=== PATIENT | female | born 1935 | race Hispanic/Latino ===

== ENCOUNTER 2016-10-05 06:08 | Day surgery (SDC) | payer MEDICARE ==
[2016-09-20 12:07] VITALS: BMI 21.9
[2016-10-05] MEDS ORDERED: Lidocaine 1%/Epinephrine 1:100000 30 ml vial ONE ×2 (07:48→08:33)
[2016-10-05] MEDS ORDERED: Bacitracin 500 Units/gm Oint Foilpak UD ONE (07:48)
[2016-10-05] MEDS ORDERED: Propofol 10 mg/ml Inj (20 ML) ONE (08:05)
[2016-10-05] MEDS ORDERED: Albuterol HFA 90 mcg/actuation (8 g) ONE (08:06)
[2016-10-05] MEDS ORDERED: Lidocaine 1% Inj (20ml) ONE (08:06)
[2016-10-05] MEDS ORDERED: Sodium Chloride 0.9% 1,000 ML IV SCH (08:15)
[2016-10-05] MEDS ORDERED: Sodium Bicarbonate (8.4%) 50 mEq Vial ONE (08:32)
[2016-10-05] MEDS ORDERED: Liquid Adhesive TOP ONE (09:39)
[2016-10-05 11:06] VITALS: RESP 19; TEMP 98.2
[2016-10-05 11:35] VITALS: BP 132/70; PULSE 69; O2SAT 95
--- NOTE | 2016-10-06 07:50 | OP ---
PROCEDURE DATE: 10/05/2016 PREOPERATIVE DIAGNOSIS: Consistent lymphadenopathy of levels 1, 2 and 3 of the neck. POSTOPERATIVE DIAGNOSIS: Consistent lymphadenopathy of levels 1, 2 and 3 of the neck. OPERATION PERFORMED: Central neck lymph node excisional biopsy under anesthesia. SURGEON: Teto Mera DO AIR CONDITIONING UNIT TESTER: Dr. Geronimo Cruz ANESTHESIA: Local anesthesia with patient with nasal cannula. ESTIMATED BLOOD LOSS: Minimal. SPECIMEN: Central neck lymph node. COMPLICATIONS: None. DESCRIPTION OF PROCEDURE: Informed consent was obtained prior. The patient was brought to the opera ting suite, placed supine on the operating table. A timeout was called verifying the patient's name, allergies, date of and procedure. Once the information was verified, the patient had nasal ca nnula place and remained supine on the operating table. Approximately 8 mL of 1% of lidocaine with 1 :100,000 epinephrine was injected subcutaneously into the right neck just superficial to the lymph no de to be biopsied in the central neck cephalad to the hyoid bone. The patient was then prepped and d raped in routine fashion with Betadine. The patient remained with nasal cannula in place. Next, after patient was draped and prepped appropriately and the area was marked using a marking pen, a #15 blade was then used to incise the skin for an approximately 3 cm horizontal incision through t he skin and subcutaneous tissues. The area was dissected down to the platysmal muscle. The platysma l muscle was carefully . The lymph node was immediately identified. Careful dissection herber und the lymph node/neck mass was performed using a blunt hemostat. Subsequent attention was then pa id around the capsule. The mass was excised from the area deep to the platysma and the right central neck area dissection and Bovie cautery. The mass was then sent for pathology in formalin and also sent for flow cytometry. The wound was examined. Hemostasis was adequate. Next, the wound was then closed in layered fashion. The platysma area was reapproximated using 4-0 V icryl. Next, 6-0 Prolene was then used in a running interlocking fashion to complete the skin closur e after which Mastisol and Steri-Strips were applied to the patient's neck as well as a bandage. The procedure was then terminated. The patient was then sent to the PACU in stable condition with a [facility] appointment to see Dr. Teto Mera within 1 week. The patient given instructions in PACU. The patient tolerated the procedure well with no complications. Teto Mera DO cc: [id number] TT: 10/06/2016 07:49:29 nn
== END 2016-10-05 12:30 | disposition home or self-care (01) ==
LOC: SDS 06:08
PROVIDERS: ATTEND Otolaryngology
DX: C88.4 Extranodal marginal zone B-cell lymphoma of mucosa-associated lymphoid tissue [MALT-lymphoma] (principal); I10 Essential (primary) hypertension; E78.5 Hyperlipidemia, unspecified; I49.9 Cardiac arrhythmia, unspecified
CPT/HCPCS: 38510; 88305; J2405; J2704; J3010; J7040; J7120

== ENCOUNTER 2016-10-26 11:58 | Day surgery (SDC) | payer MEDICARE ==
[2015-02-11 16:55] VITALS: BMI 22.4
[2016-10-26 12:21] LABS: HEMATOCRIT 31.5 % (36.0-48.0); MEAN CELL VOLUME 87.7 fL (80.0-105.0); MEAN PLATELET VOLUME 8.9 fl (7.0-11.0); RED CELL DISTRIBUTION WIDTH 15.8 % (11.5-14.5); WHITE BLOOD COUNT 4.7 10^3/ul (4.5-11.0)
[2016-10-26 12:29] LABS: CALCIUM 10.1 mg/dL (8.4-10.5); POTASSIUM 4.1 mmol/L (3.6-5.0)
[2016-10-26 12:32] LABS: INR 1.02 (0.93-1.08); PARTIAL THROMBOPLASTIN TIME 23.8 Seconds (23.7-30.8)
[2016-10-26 13:07] VITALS: RESP 20; O2SAT 95
--- NOTE | 2016-10-26 13:13 | CP.SDSHP ---
Same Day Surgery H & P - History Proposed Procedure: Ultrasound guided thoracentesis Pre-Op Diagnosis: Lymphoma - Previous Medical/Surgical History Cardiac: Hypertension, Arrhythmia Pulmonary: Other (Shortness of breath for about a month) Misc: Other (High cholesterol,fatgue,poor appetite) Pain: 0. No Pain Comments: CXray shows a large R pleural effusion. Previous Surgical History: Appendectomy. Hysterectomy. R lumpectomy followed by 6 weeks of radiation treatment. 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
[2016-10-26] MEDS ORDERED: Oxycodone/Acetaminophen 5/325 mg Tab PO PRN (15:58)
[2016-10-26 16:52] VITALS: BP 122/57; PULSE 80; TEMP 98.6
--- NOTE | 2016-10-26 17:13 | US ---
PROCEDURE: Ultrasound guided right thoracentesis. CLINICAL HISTORY: Cervical lymphoma. Large right pleural effusion. Shortness of breath PHYSICIAN(S): Antolin Noble MD. TECHNIQUE: The relative risks and indications of the procedure were explained to the patient and her daughter and consent obtained. The patient was placed in a sitting position on the stretcher and sonography of the right chest performed. This revealed a moderate to large rightpleural effusion. A right posterolateral intercostal approach was selected and the area prepped and draped usual sterile fashion. 1% Xylocaine was used to anesthetize the skin and soft tissues. A 7 Guinean thoracentesis catheter was trocared into the right pleural cavity and 1700of geller fluid aspirated. A cytology specimen was sent. IMPRESSION: 1. Ultrasound guided right thoracentesis. 1700 cc of geller fluid were aspirated.
--- NOTE | 2016-10-27 09:18 | RAD ---
HISTORY: rt thoracentesis COMPARISON: 08/29/2016 TECHNIQUE: Chest PA and lateral FINDINGS: LUNGS: No active pulmonary disease. PLEURA: There is a decrease in the size of the right pleural effusion post thoracentesis. There is no pneumothorax CARDIOVASCULAR: Normal. OSSEOUS STRUCTURES: No significant abnormalities. VISUALIZED UPPER ABDOMEN: Normal. OTHER FINDINGS: None. IMPRESSION: There is a decrease in the size of the right pleural effusion post thoracentesis. There is no pneumothorax
== END 2016-10-26 17:28 | disposition home or self-care (01) ==
LOC: OPSURG 11:58
PROVIDERS: ATTEND Radiology Vascular & Interventional Radiology
DX: J90 Pleural effusion, not elsewhere classified (principal); C85.91 Non-Hodgkin lymphoma, unspecified, lymph nodes of head, face, and neck; R06.02 Shortness of breath; I10 Essential (primary) hypertension; Z88.0 Allergy status to penicillin

== ENCOUNTER 2016-11-25 08:59 | Day surgery (SDC) | payer MEDICARE ==
[2015-02-11 16:55] VITALS: BMI 22.4
[2016-11-25 09:21] LABS: ADD MANUAL DIFF? NO
[2016-11-25 09:30] LABS: BASO # 0.05 K/mm3 (0.0-2.0); EOS # 0.1 (0.0-0.7); EOS % 1.7 % (1.5-5.0); GRAN # 3.75 (1.4-6.5); GRAN % 72.2 % (50.0-68.0); HEMATOCRIT 32.3 % (36.0-48.0); LYMPH # 0.7 (1.2-3.4); LYMPH % 13.3 % (22.0-35.0); MEAN CELL VOLUME 88.7 fL (80.0-105.0); MEAN CORPUSCULAR HEMOGLOBIN 28.3 pg (25.0-35.0); MEAN CORPUSCULAR HGB CONC 31.9 g/dl (31.0-37.0); MEAN PLATELET VOLUME 9.9 fl (7.0-11.0); MONO # 0.6 (0.1-0.6); MONO % 11.8 % (1.0-6.0); PLATELET COUNT 124 10^3/uL (120.0-450.0); WHITE BLOOD COUNT 5.2 10^3/ul (4.5-11.0)
[2016-11-25 09:34] LABS: CALCIUM 9.7 mg/dL (8.4-10.5)
[2016-11-25 09:42] LABS: INR 1.03 (0.93-1.08)
[2016-11-25 09:47] VITALS: RESP 18; O2SAT 94
--- NOTE | 2016-11-25 10:46 | CP.SDSHP ---
Same Day Surgery H & P - History Proposed Procedure: thoracentesis. Pre-Op Diagnosis: recurrent pleural effusion./lymphoma. - Previous Medical/Surgical History Cardiac: Hypertension, Arrhythmia Pulmonary: Asthma Previous Surgical History: HYSTRECTOMY , rt breast lumpectomy. - Allergies Allergies: Allergies Penicillins Allergy (Severe, Verified 09/20/16 12:07) RASH - Physical Exam General Appearance: WNL. Vital Signs: Vital Signs 11/25/16 09:39 Temperature 99.1 F Pulse Rate 83 Respiratory 18 Rate Blood Pressure 150/57 L O2 Sat by Pulse 94 L Oximetry Mental Status: Alert & Oriented x3 Neuro: WNL Heart: WNL Lungs: Other (DECREASED BREATH SOUND RT CHST AREA.) GI: WNL - Impression Impression: recurrent pleural effusion / lymphoma. 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
[2016-11-25] MEDS ORDERED: Oxycodone/Acetaminophen 5/325 mg Tab PO PRN (11:36)
[2016-11-25 12:23] VITALS: BP 113/51; PULSE 74; TEMP 98.9
--- NOTE | 2016-11-25 16:06 | US ---
PROCEDURE: Ultrasound guided right thoracentesis. CLINICAL HISTORY: Lymphoma. Recurrent large right pleural effusion with shortness of breath. Needs repeat thoracentesis. PHYSICIAN(S): Antolin Noble MD. TECHNIQUE: The relative risks and indications of the procedure were explained to the patient and her daughter and consent obtained. The patient was placed in a sitting position on the stretcher and sonography of the right chest performed. This revealed a large rightpleural effusion. A right posterolateral intercostal approach was selected and the area prepped and draped usual sterile fashion. 1% Xylocaine was used to anesthetize the skin and soft tissues. A 7 Bengali thoracentesis catheter was trocared into the right pleural cavity and 2000ccof dionne fluid aspirated. No labs were sent. IMPRESSION: 1. Ultrasound guided right thoracentesis. 2000cc of amberfluid were aspirated.
== END 2016-11-25 13:00 | disposition home or self-care (01) ==
LOC: OPSURG 08:59
PROVIDERS: ATTEND Radiology Vascular & Interventional Radiology
DX: J90 Pleural effusion, not elsewhere classified (principal); C85.90 Non-Hodgkin lymphoma, unspecified, unspecified site; I10 Essential (primary) hypertension; J45.909 Unspecified asthma, uncomplicated; Z88.0 Allergy status to penicillin
CPT/HCPCS: 32555; 36415; 80048; 85025; 85610; 85730; J2405

== ENCOUNTER 2017-03-23 12:11 | Emergency (ER) | payer MEDICARE ==
[2017-03-23 12:12] VITALS: BMI 24.2
--- NOTE | 2017-03-23 12:39 | ED PDOC ---
Arrival/HPI - General Time Seen by Provider: 03/23/17 12:24 Historian: Patient, Family - History of Present Illness Narrative History of Present Illness (Text): 03/23/17 12:30 An 82 year old female, whose past medical history includes hypertension, non- hodgkin lymphoma, fluid in lungs, lumpectomy right breast, and lymph node removal to neck, is accompanied by family member and presents to the emergency department complaining of shortness of breath since last night. Patient's family member reports patient had Chest X-Ray done on 03/21/2017, with results showing left side was clear and right side showed a pleural effusion. Patient also notes experiencing right foot swelling and noticed it since last night. Patient denies of any fever, chills, nausea, vomiting, abdominal pain, chest pain, cough, or any other complaints. PMD: Dr. Medina Time/Duration: Other (last night) Symptom Onset: Sudden Symptom Course: Unchanged Past Medical History - Provider Review Nursing Documentation Reviewed: Yes - Cardiac Hx Hypertension: Yes - Pulmonary Hx Respiratory Disorders: No Other/Comment: hx- fluid in lungs - Neurological Hx Neurological Disorder: No - HEENT Hx HEENT Disorder: No - Renal Hx Renal Disorder: No - Endocrine/Metabolic Hx Endocrine Disorders: No - Hematological/Oncological Hx Blood Transfusions: No Other/Comment: non-hodgkin lymphoma - Integumentary Hx Dermatological Disorder: No - Musculoskeletal/Rheumatological Hx Musculoskeletal Disorders: No - Gastrointestinal Hx Gastrointestinal Disorders: No - Genitourinary/Gynecological Hx Genitourinary Disorders: No - Psychiatric Hx Psychophysiologic Disorder: No Hx Substance Use: No - Surgical History Hx Appendectomy: Yes Other/Comment: lumpectomy right breast, removal lymph node to neck - Anesthesia Hx Anesthesia Reactions: No Hx Malignant Hyperthermia: No Family/Social History - Physician Review Nursing Documentation Reviewed: Yes Family/Social History: No Known Family HX Smoking Status: Never Smoked Hx Alcohol Use: No Hx Substance Use: No Allergies/Home Meds Allergies/Adverse Reactions: Allergies Penicillins Allergy (Verified 03/02/17 11:20) shaking Home Medications: Home Meds Medication Instructions Recorded Confirmed Ascorbic Acid [Vitamin C 500 mg 500 mg PO DAILY 03/02/17 03/23/17 Tab] Aspirin [Adult Low Dose Aspirin EC] 81 mg PO DAILY 03/02/17 03/23/17 Fluticasone/Vilanterol [Breo 1 inh INH DAILY 03/02/17 03/23/17 Ellipta 100-25 Mcg INH] Metoprolol Tartrate [Lopressor] 100 mg PO DAILY 03/02/17 03/23/17 [place]-3 Fatty Acids/Fish Oil [Fish 1 cap PO DAILY 03/02/17 03/23/17 Oil 1,000 mg Capsule] Rosuvastatin Calcium [Crestor] 5 mg PO DAILY 03/02/17 03/23/17 Zolpidem [Ambien] 5 mg PO HS 03/02/17 03/23/17 Review of Systems - Physician Review All systems were reviewed & negative as marked: Yes - Review of Systems Constitutional: absent: Fevers, Night Sweats Respiratory: SOB. absent: Cough Cardiovascular: absent: Chest Pain Gastrointestinal: absent: Abdominal Pain, Nausea, Vomiting Musculoskeletal: Other (right foot swelling) Physical Exam Vital Signs Reviewed: Yes Vital Signs Temp Pulse Resp BP Pulse Ox 03/23/17 12:20 99.0 F 71 20 124/59 L 96 03/23/17 12:12 99 F 81 20 155/60 H 95 Temperature: Afebrile Blood Pressure: Normal Pulse: Regular Respiratory Rate: Normal Appearance: Positive for: Well-Appearing Pain Distress: None Mental Status: Positive for: Alert and Oriented X 3 - Systems Exam Head: Present: Atraumatic, Normocephalic Pupils: Present: PERRL Extroacular Muscles: Present: EOMI Conjunctiva: Present: Normal Mouth: Present: Moist Mucous Membranes Neck: Present: Normal Range of Motion Respiratory/Chest: Present: Decreased Breath Sounds (right side) Cardiovascular: Present: Regular Rate and Rhythm, Normal S1, S2. No: Murmurs Abdomen: Present: Normal Bowel Sounds. No: Tenderness, Distention, Peritoneal Signs Back: Present: Normal Inspection Upper Extremity: Present: Normal Inspection. No: Cyanosis, Edema Lower Extremity: Present: NORMAL PULSES (right foot ), Normal ROM (full ROM to right foot), Swelling (mild swelling to right foot ). No: CALF TENDERNESS, Tenderness (no tenderness to right foot) Neurological: Present: GCS=15, CN II-XII Intact, Speech Normal Skin: Present: Warm, Dry, Normal Color. No: Rashes Psychiatric: Present: Alert, Oriented x 3, Normal Insight, Normal Concentration Medical Decision Making ED Course and Treatment: 03/23/17 12:35 Impression: 82 year old female with shortness of breath right foot swelling. Physical exam shows decreased breath sounds to right side; mild swelling, no tenderness, normal pulses, and full ROM to right foot, no calf tenderness. Differential Diagnosis included but are not limited to: Pleural Effusion vs. Pneumonia vs. DVT Plan: -- EKG -- Chest X-ray -- Labs -- Blood Culture -- Reassess and disposition Prior Visits: Notes and results from previous visits were reviewed. Patient was last seen here in the emergency department 02/11/2017 for chest pain. Progress Notes: 03/23/17 13:17 CXR shows right pleural effusion. Case was discussed with Dr. Ortiz who is covering for Dr. Shirley. She agreed to telemetry admission. I placed a consult for Dr. Noble who drained her lungs last time she was here. - Lab Interpretations Lab Results: 03/23/17 12:45 Lab Results 03/23/17 12:45: WBC 3.3 L, RBC 3.97, Hgb 11.7 L, Hct 35.8 L, MCV 90.2, MCH 29.5 , MCHC 32.7, RDW 14.3, Plt Count 125, MPV 10.0, Gran % 57.1, Lymph % (Auto) 21.0 L, [place] % (Auto) 12.2 H, Eos % (Auto) 7.9 H, Baso % (Auto) 1.8, Gran # 1.88 , Lymph # 0.7 L, [place] # 0.4, Eos # 0.3, Baso # 0.06 - RAD Interpretation Radiology Orders: 03/23/17 12:35 CHEST PORTABLE [RAD] Stat - Scribe Statement The provider has reviewed the documentation as recorded by the Maritzaibgloria Segovia Provider Scribe Attestation: All medical record entries made by the Scribe were at my direction and personally dictated by me. I have reviewed the chart and agree that the record accurately reflects my personal performance of the history, physical exam, medical decision making, and the department course for this patient. I have also personally directed, reviewed, and agree with the discharge instructions and disposition. Disposition/Present on Arrival - Present on Arrival Any Indicators Present on Arrival: No History of DVT/PE: No History of Uncontrolled Diabetes: No Urinary Catheter: No History of Decub. Ulcer: No History Surgical Site Infection Following: None - Disposition Have Diagnosis and Disposition been Completed?: Yes Diagnosis: Pleural effusion Disposition: HOSPITALIZED Disposition Time: 13:18 Patient Plan: Admission Condition: FAIR
[2017-03-23 13:07] LABS: BASO # 0.06 K/mm3 (0.0-2.0); BASO % 1.8 % (0.0-3.0); EOS # 0.3 (0.0-0.7); EOS % 7.9 % (1.5-5.0); GRAN # 1.88 (1.4-6.5); GRAN % 57.1 % (50.0-68.0); HEMATOCRIT 35.8 % (36.0-48.0); LYMPH # 0.7 (1.2-3.4); MEAN CELL VOLUME 90.2 fl (80.0-105.0); MEAN CORPUSCULAR HEMOGLOBIN 29.5 pg (25.0-35.0); MEAN CORPUSCULAR HGB CONC 32.7 g/dl (31.0-37.0); MONO # 0.4 (0.1-0.6); MONO % 12.2 % (1.0-6.0); RED CELL DISTRIBUTION WIDTH 14.3 % (11.5-14.5); WHITE BLOOD COUNT 3.3 10^3/ul (4.5-11.0)
[2017-03-23 13:19] LABS: INR 0.98 (0.93-1.08); PARTIAL THROMBOPLASTIN TIME 23.2 Seconds (23.7-30.8)
[2017-03-23 13:20] LABS: ALB/GLOB RATIO 1.1 (1.1-1.8); ALKALINE PHOSPHATASE 70 U/L (38-126); ALT/SGPT 20 U/L (7-56); AST/SGOT 25 U/L (14-36); BILIRUBIN,TOTAL 0.3 mg/dL (0.2-1.3); BLOOD UREA NITROGEN 23 mg/dL (7-21); CALCIUM 9.1 mg/dL (8.4-10.5); CARBON DIOXIDE 28 mmol/L (21-33); CHLORIDE 104 mmol/L (98-107); GFR AFRICAN-AMERICAN 57; GLUCOSE,RANDOM 153 mg/dL (70-110); POTASSIUM 4.3 mmol/L (3.6-5.0); SODIUM 140 mmol/L (132-148); TOTAL PROTEIN 6.7 g/dL (5.8-8.3)
[2017-03-23 13:36] LABS: TROPONIN I < 0.01 ng/mL
--- NOTE | 2017-03-23 13:47 | RAD ---
HISTORY: sob COMPARISON: 03/02/2017 FINDINGS: LUNGS: There is a large right pleural effusion. There is a small right apical pneumothorax. There is no left pleural effusion or pneumothorax. Opacity above right hilum of uncertain significance. Followup to rule out pneumonia. PLEURA: As above. CARDIOVASCULAR: Normal heart size. Congestive change. OSSEOUS STRUCTURES: No significant abnormalities. VISUALIZED UPPER ABDOMEN: Normal. OTHER FINDINGS: None. IMPRESSION: Large right pleural effusion. Small right apical pneumothorax. Right suprahilar opacity, nonspecific. Followup rule out pneumonia.
--- NOTE | 2017-03-23 16:36 | US ---
PROCEDURE: Ultrasound guided right thoracentesis. CLINICAL HISTORY: Lymphoma. Recurrent large right pleural effusion. Needs repeat thoracentesis PHYSICIAN(S): Antolin Noble MD. TECHNIQUE: The relative risks and indications of the procedure were explained to the patient her daughter and consent obtained. The patient was placed in a sitting position on the stretcher and sonography of the right chest performed. This revealed a moderate to large rightpleural effusion. A right posterolateral intercostal approach was selected and the area prepped and draped usual sterile fashion. 1% Xylocaine was used to anesthetize the skin and soft tissues. A 7 American thoracentesis catheter was trocared into the right pleural cavity and 2000 ccof clear straw-colored fluid aspirated. No labs were sent IMPRESSION: 1. Ultrasound guided right thoracentesis. 2000 cc of clear fluid were aspirated.
[2017-03-23 17:16] VITALS: TEMP 98.9
--- NOTE | 2017-03-23 17:18 | RAD ---
HISTORY: POST THORACENTESIS COMPARISON: Chest x-ray performed 03/23/17 at 1247 hours TECHNIQUE: Chest PA and lateral FINDINGS: LUNGS: Surgical clips project over the right lower chest. Diminished opacity within the right lower lobe. PLEURA: Blunting of the costophrenic angles consistent with tiny pleural effusions. Previously demonstrated small right apical pneumothorax is not appreciated on the current submitted view. CARDIOVASCULAR: Heart size appears within normal limits. Dense atherosclerotic calcification of the aorta. OSSEOUS STRUCTURES: Osseous demineralization. Degenerative changes. VISUALIZED UPPER ABDOMEN: Unremarkable. OTHER FINDINGS: None. IMPRESSION: Diminished opacity within the right lower lobe. Blunting of the costophrenic angles consistent with tiny pleural effusions. Previously demonstrated small right apical pneumothorax is not appreciated on the current submitted view.
[2017-03-23] MEDS ORDERED: Albuterol-Ipratrop 3 mg / 0.5 (3 ml) UD IH PRN (17:24)
--- NOTE | 2017-03-23 17:36 | CARD ---
APPROVED REPORT EKG Measurement Heart [id number] <Conclusion> Normal sinus rhythm Normal ECG
[2017-03-23 17:40] VITALS: O2SAT 97
[2017-03-23 17:45] VITALS: BP 132/72; PULSE 68; RESP 17
== END 2017-03-23 17:43 | disposition home or self-care (01) ==
LOC: ED 12:11 → MERGE 12:11 → UNDOADMIN 13:15 → ERH 13:15 → ED 17:43
DX: J90 Pleural effusion, not elsewhere classified (principal); I10 Essential (primary) hypertension; C85.90 Non-Hodgkin lymphoma, unspecified, unspecified site

== ENCOUNTER 2017-04-25 11:49 | Emergency (ER) | payer MEDICARE ==
[2017-04-25 11:50] VITALS: BMI 24.2
--- NOTE | 2017-04-25 12:49 | ED PDOC ---
Arrival/HPI - General Chief Complaint: Fever Time Seen by Provider: 04/25/17 12:11 Historian: Patient, Family (daughter) - History of Present Illness Narrative History of Present Illness (Text): 04/25/17 12:26 A 82 year old female, whose past medical history includes hypertension, non- hodgkin lymphoma s/p recent rituxan therapy, and asthma and pleural effusion, is accompanied by daughter and presents to the emergency department complaining of fever at night for 3 days. Patient notes also experiencing sore throat and slight cough, but denies any chills, nausea, vomiting, diarrhea, abdominal pain , chest pain, shortness of breath, headache, dizziness, back pain, or any other complaints. Also, daughter mentions patient has had Rituxan treatment x 4 for lymphoma. PMD: Dr. Medina Time/Duration: < week (3 days) Symptom Onset: Sudden Symptom Course: Unchanged Past Medical History - Provider Review Nursing Documentation Reviewed: Yes - Infectious Disease Hx of Infectious Diseases: None - Cardiac Hx Cardiac Disorders: Yes Hx Hypertension: Yes Hx Pacemaker: No - Pulmonary Hx Respiratory Disorders: Yes Hx Pneumonia: Yes Other/Comment: plueral effusion - Neurological Hx Neurological Disorder: No Hx Paralysis: No - HEENT Hx HEENT Disorder: Yes Other/Comment: glasses - Renal Hx Renal Disorder: No - Endocrine/Metabolic Hx Endocrine Disorders: No - Hematological/Oncological Hx Blood Disorders: Yes Hx Blood Transfusions: No Hx Cancer: Yes (lymphoma) - Integumentary Hx Dermatological Disorder: No - Musculoskeletal/Rheumatological Hx Musculoskeletal Disorders: Yes Hx Arthritis: Yes - Gastrointestinal Hx Gastrointestinal Disorders: No - Genitourinary/Gynecological Hx Genitourinary Disorders: No - Psychiatric Hx Psychophysiologic Disorder: No Hx Emotional Abuse: No Hx Physical Abuse: No Hx Substance Use: No - Surgical History Hx Appendectomy: Yes Other/Comment: neck surgery in the past - Anesthesia Hx Anesthesia: Yes Hx Anesthesia Reactions: No Hx Malignant Hyperthermia: No - Suicidal Assessment Feels Threatened In Home Enviroment: No Family/Social History - Physician Review Nursing Documentation Reviewed: Yes Family/Social History: No Known Family HX Smoking Status: Never Smoked Hx Alcohol Use: No Hx Substance Use: No Hx Substance Use Treatment: No Allergies/Home Meds Allergies/Adverse Reactions: Allergies Penicillins Allergy (Severe, Verified 04/18/17 12:13) RASH Home Medications: Home Meds Medication Instructions Recorded Confirmed Hydrochlorothiazide [Microzide] 12.5 mg PO DAILY 06/15/12 04/25/17 Aspirin [Aspirin Chewable] 81 mg PO DAILY 09/16/13 04/25/17 Calcium/Vitamin D [Oyster Shell 1 tab PO BID 09/20/16 04/25/17 Calcium/Vitamin D 500 mg-200 IU] Metoprolol Succinate [Metoprolol 50 mg PO DAILY 09/20/16 04/25/17 Succinate Xl] [place]-3 Fatty Acids/Fish Oil [Fish 1,000 mg PO DAILY 09/20/16 04/25/17 Oil 1,000 mg Capsule] Rosuvastatin Calcium [Crestor] 5 mg PO DAILY 09/20/16 04/25/17 Zolpidem [Ambien] 5 mg PO HS 09/20/16 04/25/17 amLODIPine [Norvasc] 2.5 mg PO DAILY 10/05/16 04/25/17 Review of Systems - Physician Review All systems were reviewed & negative as marked: Yes - Review of Systems Constitutional: Fevers. absent: Night Sweats ENT: Sore Throat Respiratory: Cough (slight cough) Cardiovascular: absent: Chest Pain Gastrointestinal: absent: Abdominal Pain, Diarrhea, Nausea, Vomiting Musculoskeletal: absent: Back Pain Neurological: absent: Headache, Dizziness Physical Exam Temperature: Afebrile Blood Pressure: Normal Pulse: Regular Respiratory Rate: Normal Appearance: Positive for: Well-Appearing, Non-Toxic, Comfortable Pain Distress: None Mental Status: Positive for: Alert and Oriented X 3 - Systems Exam Head: Present: Atraumatic, Normocephalic Pupils: Present: PERRL Conjunctiva: Present: Normal Mouth: Present: Moist Mucous Membranes Pharnyx: Present: Normal. No: ERYTHEMA, EXUDATE Neck: Present: Normal Range of Motion Respiratory/Chest: Present: Clear to Auscultation, Good Air Exchange, Other ( pleural tube drain site is clean and dry with pus or erythema). No: Respiratory Distress, Accessory Muscle Use Cardiovascular: Present: Regular Rate and Rhythm, Normal S1, S2. No: Murmurs Abdomen: Present: Normal Bowel Sounds. No: Tenderness, Distention, Peritoneal Signs Back: Present: Normal Inspection Upper Extremity: Present: Normal Inspection. No: Cyanosis, Edema Lower Extremity: Present: Normal Inspection. No: Edema Neurological: Present: GCS=15, CN II-XII Intact, Speech Normal Skin: Present: Warm, Dry, Normal Color. No: Rashes Psychiatric: Present: Alert, Oriented x 3, Normal Insight, Normal Concentration Medical Decision Making ED Course and Treatment: 04/25/17 12:32 Impression: 82 year old female with lymphoma with nightly fever at home up to 103, , sore throat, and slight cough. No acute findings on physical exam. Patient is afebrile here. Differential: infection vs lymphoma. Plan: -- EKG -- Chest X-ray -- Labs -- Urinalysis -- Urine Culture -- Blood Culture -- Blood Gas -- Reassess and disposition Prior Visits: Notes and results from previous visits were reviewed. Patient was last seen in the emergency department on 04/18/2017 for catheter placement. Patient was discharged home. Progress Notes: 04/25/2017 13:00 Chest X-ray IMPRESSION: Small bilateral pleural effusion. Right basilar chest tube. No pneumothorax. No pulmonary infiltrate. Dictator: Antolin Mark MD 04/25/17 14:57 Patient with noted history of lymphoma; fever is nightly. She is afebrile here and labs are unremarkable. Chest tube site is unremarkable. Discussed with Dr. Antolin Noble, who evaluated the tube site and said no evidence of infection and patient may be discharged. Spoke also with Dr. Mcdonnell, who is also in agreement that cultures may be followed outpatient and he will follow up with the patient outpatient; she is scheduled for an outpatient PET CT in 4 days. Patient will be discharged and culture results to be followed by patient outpatient. - Lab Interpretations Lab Results: 04/25/17 13:15 04/25/17 13:15 Lab Results 04/25/17 13:33: pO2 159 H, VBG pH 7.44 H, VBG pCO2 41.0, VBG HCO3 27.8, VBG Total CO2 29.1 H, VBG O2 Sat (Calc) 99.1 H, VBG Base Excess 3.3 H, VBG Potassium 4.4, Glucose 110 H, Lactate 1.0, FiO2 21.0, Sodium 138.0, Chloride 107.0, Venous Blood Potassium 4.4 04/25/17 13:15: Sodium 139, Potassium 4.2, Chloride 102, Carbon Dioxide 31, Anion Gap 10, BUN 14, Creatinine 1.0, Est GFR ( Amer) > 60, Est GFR (Non- Af Amer) 53, Random Glucose 109, Calcium 9.4, Phosphorus 4.0, Magnesium 2.1, Total Bilirubin 0.4, AST 31, ALT 25, Alkaline Phosphatase 79, Lactate Dehydrogenase 456, Total Creatine Kinase 70, Troponin I < 0.01, NT-Pro-B Natriuret Pep 590 H, Total Protein 7.2, Albumin 3.5, Globulin 3.6, Albumin/ Globulin Ratio 1.0 L, Lipase 58 04/25/17 13:15: PT 12.3, INR 1.12 H, APTT 27.2 04/25/17 13:15: WBC 5.0, RBC 3.70, Hgb 10.6 L, Hct 33.2 L, MCV 89.7, MCH 28.6, MCHC 31.9, RDW 13.9, Plt Count 215, MPV 9.5, Gran % 76.6 H, Lymph % (Auto) 7.9 L , [place] % (Auto) 11.5 H, Eos % (Auto) 3.4, Baso % (Auto) 0.6, Gran # 3.80, Lymph # 0.4 L, [place] # 0.6, Eos # 0.2, Baso # 0.03 04/25/17 13:00: Urine Color Yellow, Urine Appearance Clear, Urine pH 6.0, Ur Specific [place] 1.010, Urine Protein Negative, Urine Glucose (UA) Negative, Urine Ketones Negative, Urine Blood Negative, Urine Nitrate Negative, Urine Bilirubin Negative, Urine Urobilinogen 0.2, Ur Leukocyte Esterase Negative I have reviewed the lab results: Yes - RAD Interpretation Radiology Orders: 04/25/17 12:36 CHEST PORTABLE [RAD] Stat - Scribe Statement The provider has reviewed the documentation as recorded by the Laurent Segovia Provider Scribe Attestation: All medical record entries made by the Maritzaibgloria were at my direction and personally dictated by me. I have reviewed the chart and agree that the record accurately reflects my personal performance of the history, physical exam, medical decision making, and the department course for this patient. I have also personally directed, reviewed, and agree with the discharge instructions and disposition. Disposition/Present on Arrival - Present on Arrival Any Indicators Present on Arrival: No History of DVT/PE: No History of Uncontrolled Diabetes: No Urinary Catheter: No History of Decub. Ulcer: No History Surgical Site Infection Following: None - Disposition Have Diagnosis and Disposition been Completed?: Yes Diagnosis: Fever, Lymphoma Disposition: HOME/ ROUTINE Disposition Time: 15:05 Patient Plan: Discharge Patient Problems: Current Active Problems Problem Status Onset Fever Acute Lymphoma Acute Condition: GOOD
--- NOTE | 2017-04-25 13:01 | RAD ---
HISTORY: fever, h/o lymphoma, pleural effusion COMPARISON: 04/07/2017 FINDINGS: LUNGS: No definite infiltrate. PLEURA: Small bilateral pleural effusion. Markedly decreased right pleural effusion when compared to the prior examination. There is a chest tube seen at the right lung base. There are surgical clips within the right breast overlying the right lung base. . CARDIOVASCULAR: Normal. OSSEOUS STRUCTURES: No significant abnormalities. VISUALIZED UPPER ABDOMEN: Normal. OTHER FINDINGS: None. IMPRESSION: Small bilateral pleural effusion. Right basilar chest tube. No pneumothorax. No pulmonary infiltrate.
[2017-04-25 13:33] LABS: URINE BILIRUBIN NEGATIVE (NEGATIVE); URINE BLOOD NEGATIVE (NEGATIVE); URINE GLUCOSE (UA) NEGATIVE (NEGATIVE); URINE KETONE NEGATIVE (NEGATIVE); URINE LEUKOCYTE ESTERASE NEGATIVE Leu/uL (NEGATIVE); URINE PROTEIN NEGATIVE mg/dL (<30 mg/dL); URINE UROBILINOGEN 0.2 E.U./dL (<1 E.U./dL)
[2017-04-25 13:34] LABS: URINE APPEARANCE CLEAR (CLEAR); URINE COLOR YELLOW (YELLOW)
[2017-04-25 13:37] LABS: BASO # 0.03 K/mm3 (0.0-2.0); BASO % 0.6 % (0.0-3.0); EOS # 0.2 (0.0-0.7); EOS % 3.4 % (1.5-5.0); GRAN # 3.8 (1.4-6.5); GRAN % 76.6 % (50.0-68.0); HEMATOCRIT 33.2 % (36.0-48.0); LYMPH # 0.4 (1.2-3.4); LYMPH % 7.9 % (22.0-35.0); MEAN CELL VOLUME 89.7 fl (80.0-105.0); MEAN CORPUSCULAR HEMOGLOBIN 28.6 pg (25.0-35.0); MEAN CORPUSCULAR HGB CONC 31.9 g/dl (31.0-37.0); MEAN PLATELET VOLUME 9.5 fl (7.0-11.0); MONO # 0.6 (0.1-0.6); MONO % 11.5 % (1.0-6.0); RED CELL DISTRIBUTION WIDTH 13.9 % (11.5-14.5)
[2017-04-25 13:39] LABS: VENOUS BLOOD GAS BASE EXCESS 3.3 mmol/L (0.0-2.0); VENOUS BLOOD PH 7.44 (7.32-7.43)
[2017-04-25 13:52] LABS: INR 1.12 (0.93-1.08); PARTIAL THROMBOPLASTIN TIME 27.2 Seconds (25.1-36.5)
[2017-04-25 14:18] LABS: ALKALINE PHOSPHATASE 79 U/L (38-126); ALT/SGPT 25 U/L (7-56); AST/SGOT 31 U/L (14-36); BILIRUBIN,TOTAL 0.4 mg/dL (0.2-1.3); BLOOD UREA NITROGEN 14 mg/dL (7-21); CALCIUM 9.4 mg/dL (8.4-10.5); CARBON DIOXIDE 31 mmol/L (21-33); CHLORIDE 102 mmol/L (98-107); GFR AFRICAN-AMERICAN > 60; GLUCOSE,RANDOM 109 mg/dL (70-110); LIPASE 58 U/L (23-300); MAGNESIUM 2.1 mg/dL (1.7-2.2); POTASSIUM 4.2 mmol/L (3.6-5.0); SODIUM 139 mmol/L (132-148); TOTAL PROTEIN 7.2 g/dL (5.8-8.3)
[2017-04-25 14:31] LABS: TROPONIN I < 0.01 ng/mL
[2017-04-25 16:10] VITALS: RESP 16
[2017-04-25 16:13] VITALS: BP 134/67; PULSE 84; TEMP 98.7; O2SAT 99
[2017-04-25 16:45] LABS: BODY FLUID TYPE PLEURAL/THORACENTESI
[2017-04-25 17:42] LABS: BF GROSS APPEARANCE CLOUDY (CLEAR)
[2017-04-25 17:43] LABS: BODY FLUID TOTAL COUNT 100 (0-0)
== END 2017-04-25 17:00 | disposition home or self-care (01) ==
LOC: ED 11:49 → ERH 14:02 → UNDOADMOB 14:02 → ERH 14:15 → ED 17:00
DX: R50.9 Fever, unspecified (principal); C85.90 Non-Hodgkin lymphoma, unspecified, unspecified site; I10 Essential (primary) hypertension

== ENCOUNTER 2017-05-10 14:38 | Emergency (ER) | payer MEDICARE ==
[2017-05-10 14:38] VITALS: BMI 24.2
[2017-05-10 15:31] VITALS: RESP 18
--- NOTE | 2017-05-10 16:10 | ED PDOC ---
Arrival/HPI - General Chief Complaint: Fever Time Seen by Provider: 05/10/17 15:14 Historian: Patient - History of Present Illness Narrative History of Present Illness (Text): 05/10/17 16:06 82yo female with PMhx of hypertension, pleural effusion referred to ED by Dr. carrera. the daughter by the bedside notes that pt's temp was 99.9 yesterday and 100.1 today. Notes that patient had thoracentesis yesterday , but the fever started before thoracentesis was done. Daughter also reports few days history of rhnorhea. Denies cough, abdominal pain, nausea, vomiting, sick contact, travel, LE edema, calf pain, chest pain, urinary symptoms. any other complaint. Past Medical History - Provider Review Nursing Documentation Reviewed: Yes - Infectious Disease Hx of Infectious Diseases: None - Reproductive Menopause: Yes - Cardiac Hx Cardiac Disorders: Yes Hx Hypertension: Yes Hx Pacemaker: No - Pulmonary Hx Respiratory Disorders: Yes Hx Pneumonia: Yes Other/Comment: plueral effusion - Neurological Hx Neurological Disorder: No Hx Paralysis: No - HEENT Hx HEENT Disorder: Yes Other/Comment: glasses - Renal Hx Renal Disorder: No - Endocrine/Metabolic Hx Endocrine Disorders: No - Hematological/Oncological Hx Blood Disorders: Yes Hx Blood Transfusions: No Hx Cancer: Yes (lymphoma) - Integumentary Hx Dermatological Disorder: No - Musculoskeletal/Rheumatological Hx Musculoskeletal Disorders: Yes Hx Arthritis: Yes - Gastrointestinal Hx Gastrointestinal Disorders: No - Genitourinary/Gynecological Hx Genitourinary Disorders: No - Psychiatric Hx Psychophysiologic Disorder: No Hx Emotional Abuse: No Hx Physical Abuse: No Hx Substance Use: No - Surgical History Hx Appendectomy: Yes Other/Comment: neck surgery in the past - Anesthesia Hx Anesthesia: Yes Hx Anesthesia Reactions: No Hx Malignant Hyperthermia: No - Suicidal Assessment Feels Threatened In Home Enviroment: No Family/Social History - Physician Review Nursing Documentation Reviewed: Yes Family/Social History: Unknown Family HX Smoking Status: Never Smoked Hx Alcohol Use: No Hx Substance Use: No Hx Substance Use Treatment: No Allergies/Home Meds Allergies/Adverse Reactions: Allergies Penicillins Allergy (Severe, Verified 05/10/17 16:06) RASH Home Medications: Home Meds Medication Instructions Recorded Confirmed Hydrochlorothiazide [Microzide] 12.5 mg PO DAILY 06/15/12 05/10/17 Aspirin [Aspirin Chewable] 81 mg PO DAILY 09/16/13 05/10/17 Calcium/Vitamin D [Oyster Shell 1 tab PO BID 09/20/16 05/10/17 Calcium/Vitamin D 500 mg-200 IU] Metoprolol Succinate [Metoprolol 50 mg PO DAILY 09/20/16 05/10/17 Succinate Xl] [place]-3 Fatty Acids/Fish Oil [Fish 1,000 mg PO DAILY 09/20/16 05/10/17 Oil 1,000 mg Capsule] Rosuvastatin Calcium [Crestor] 5 mg PO DAILY 09/20/16 05/10/17 Zolpidem [Ambien] 5 mg PO HS 09/20/16 05/10/17 amLODIPine [Norvasc] 2.5 mg PO DAILY 10/05/16 05/10/17 Review of Systems - Physician Review All systems were reviewed & negative as marked: Yes - Review of Systems Constitutional: Fevers Eyes: Normal ENT: Normal Respiratory: Normal Cardiovascular: Normal Gastrointestinal: Normal Genitourinary Female: Normal Musculoskeletal: Normal Skin: Normal Neurological: Normal Endocrine: Normal Hemo/Lymphatic: Normal Psychiatric: Normal Physical Exam Vital Signs Reviewed: Yes Vital Signs Temp Pulse Resp BP Pulse Ox 05/10/17 19:02 98.6 F 72 128/84 99 05/10/17 15:49 99.9 F H 84 18 127/62 98 05/10/17 15:27 99.9 F H 87 18 127/62 96 Temperature: Afebrile Blood Pressure: Normal Pulse: Regular Respiratory Rate: Normal Appearance: Positive for: Well-Appearing, Non-Toxic, Comfortable Pain Distress: None Mental Status: Positive for: Alert and Oriented X 3 - Systems Exam Head: Present: Atraumatic, Normocephalic Pupils: Present: PERRL Extroacular Muscles: Present: EOMI Conjunctiva: Present: Normal Mouth: Present: Moist Mucous Membranes Neck: Present: Normal Range of Motion Respiratory/Chest: Present: Clear to Auscultation, Good Air Exchange. No: Respiratory Distress, Accessory Muscle Use Cardiovascular: Present: Regular Rate and Rhythm, Normal S1, S2. No: Murmurs Abdomen: Present: Normal Bowel Sounds. No: Tenderness, Distention, Peritoneal Signs Back: Present: Normal Inspection Upper Extremity: Present: Normal Inspection. No: Cyanosis, Edema Lower Extremity: Present: Normal Inspection. No: Edema Neurological: Present: GCS=15, CN II-XII Intact, Speech Normal Skin: Present: Warm, Dry, Normal Color. No: Rashes Psychiatric: Present: Alert, Oriented x 3, Normal Insight, Normal Concentration Medical Decision Making ED Course and Treatment: 05/10/17 19:49 PT is not lethargic in ED. Blood culture was ordered and pending. Lab was noted without leukocytosis or any specific finding . chest mild b/l pleural effusion. This is improvement from her previous CXR. PT requested to be DC home. I called but couldn't reach Dr. carrera, according to the service ([facility]) PT was DC home with a rx of Levaquin 500mg for fever of unknown origin. Fever could be also viral in origin. she was advised to call Dr. Carrera tomorrow [facility] for further outpt evaluation. - Lab Interpretations Lab Results: 05/10/17 16:00 05/10/17 16:00 Lab Results 05/10/17 18:24: Urine Color Yellow, Urine Appearance Clear, Urine pH 6.5, Ur Specific [place] 1.015, Urine Protein Negative, Urine Glucose (UA) Negative, Urine Ketones Negative, Urine Blood Negative, Urine Nitrate Negative, Urine Bilirubin Negative, Urine Urobilinogen 0.2, Ur Leukocyte Esterase Negative 05/10/17 16:00: Sodium 137, Potassium 4.1, Chloride 103, Carbon Dioxide 25, Anion Gap 13, BUN 18, Creatinine 1.0, Est GFR ( Amer) > 60, Est GFR (Non- Af Amer) 53, Random Glucose 102, Calcium 9.2, Phosphorus 3.6, Magnesium 1.9, Total Bilirubin 0.4, AST 26, ALT 25, Alkaline Phosphatase 72, Troponin I < 0.01 , Total Protein 7.4, Albumin 3.5, Globulin 3.8, Albumin/Globulin Ratio 0.9 L 05/10/17 16:00: PT 12.0, INR 1.10 H, APTT 27.3 05/10/17 16:00: WBC 4.4 L, RBC 3.54, Hgb 10.0 L, Hct 31.6 L, MCV 89.3, MCH 28.2 , MCHC 31.6, RDW 14.2, Plt Count 177, MPV 9.7, Gran % 67.3, Lymph % (Auto) 17.8 L, [place] % (Auto) 11.5 H, Eos % (Auto) 2.5, Baso % (Auto) 0.9, Gran # 2.98, Lymph # 0.8 L, [place] # 0.5, Eos # 0.1, Baso # 0.04 - RAD Interpretation Radiology Orders: 05/10/17 15:36 CHEST PORTABLE [RAD] Stat Disposition/Present on Arrival - Present on Arrival Any Indicators Present on Arrival: No History of DVT/PE: No History of Uncontrolled Diabetes: No Urinary Catheter: No History of Decub. Ulcer: No History Surgical Site Infection Following: None - Disposition Have Diagnosis and Disposition been Completed?: Yes Diagnosis: Fever Disposition: HOME/ ROUTINE Disposition Time: 18:50 Patient Plan: Discharge Condition: STABLE Discharge Instructions (ExitCare): Fever in Adults (ED) Additional Instructions: Follow up with your doctor tomorrow Return to ED for any new symptoms Prescriptions: levoFLOXacin [Levaquin] 500 mg PO DAILY #5 tab Referrals: Kenneth Carrera MD [Family Provider] - Follow up with primary Forms: Buy buy tea (Romanian)
[2017-05-10 16:20] LABS: BASO # 0.04 K/mm3 (0.0-2.0); BASO % 0.9 % (0.0-3.0); EOS # 0.1 (0.0-0.7); EOS % 2.5 % (1.5-5.0); GRAN # 2.98 (1.4-6.5); GRAN % 67.3 % (50.0-68.0); HEMATOCRIT 31.6 % (36.0-48.0); LYMPH # 0.8 (1.2-3.4); LYMPH % 17.8 % (22.0-35.0); MEAN CELL VOLUME 89.3 fl (80.0-105.0); MEAN CORPUSCULAR HEMOGLOBIN 28.2 pg (25.0-35.0); MEAN CORPUSCULAR HGB CONC 31.6 g/dl (31.0-37.0); MEAN PLATELET VOLUME 9.7 fl (7.0-11.0); MONO # 0.5 (0.1-0.6); MONO % 11.5 % (1.0-6.0); RED CELL DISTRIBUTION WIDTH 14.2 % (11.5-14.5); WHITE BLOOD COUNT 4.4 10^3/ul (4.5-11.0)
[2017-05-10 16:29] LABS: INR 1.1 (0.93-1.08); PARTIAL THROMBOPLASTIN TIME 27.3 Seconds (25.1-36.5)
[2017-05-10 16:50] LABS: TROPONIN I < 0.01 ng/mL
[2017-05-10 16:51] LABS: ALB/GLOB RATIO 0.9 (1.1-1.8); BLOOD UREA NITROGEN 18 mg/dL (7-21); CALCIUM 9.2 mg/dL (8.4-10.5); CARBON DIOXIDE 25 mmol/L (21-33); CHLORIDE 103 mmol/L (98-107); GFR AFRICAN-AMERICAN > 60; GLUCOSE,RANDOM 102 mg/dL (70-110); MAGNESIUM 1.9 mg/dL (1.7-2.2); PHOSPHOROUS 3.6 mg/dL (2.5-4.5); POTASSIUM 4.1 mmol/L (3.6-5.0); SODIUM 137 mmol/L (132-148); TOTAL PROTEIN 7.4 g/dL (5.8-8.3)
[2017-05-10 16:52] LABS: ALKALINE PHOSPHATASE 72 U/L (38-126); ALT/SGPT 25 U/L (7-56); AST/SGOT 26 U/L (14-36); BILIRUBIN,TOTAL 0.4 mg/dL (0.2-1.3)
--- NOTE | 2017-05-10 17:19 | RAD ---
HISTORY: Sepsis Patient COMPARISON: No prior. FINDINGS: LUNGS: The lungs are hyperinflated. Again seen are chronic changes in the lungs. PLEURA: No change in bilateral pleural effusions, larger on the left. Stable position of the left chest tube in the basilar pleural cavity. No pneumothorax apparent. CARDIOVASCULAR: Normal. OSSEOUS STRUCTURES: No significant abnormalities. VISUALIZED UPPER ABDOMEN: Normal. OTHER FINDINGS: None. IMPRESSION: No change in small bilateral pleural effusions with stable position of right chest tube.
[2017-05-10 18:31] LABS: PH,URINE 6.5 (4.7-8.0); URINE BILIRUBIN NEGATIVE (NEGATIVE); URINE BLOOD NEGATIVE (NEGATIVE); URINE GLUCOSE (UA) NEGATIVE (NEGATIVE); URINE KETONE NEGATIVE (NEGATIVE); URINE LEUKOCYTE ESTERASE NEGATIVE Leu/uL (NEGATIVE); URINE PROTEIN NEGATIVE mg/dL (<30 mg/dL); URINE UROBILINOGEN 0.2 E.U./dL (<1 E.U./dL)
[2017-05-10 18:32] LABS: URINE APPEARANCE CLEAR (CLEAR); URINE COLOR YELLOW (YELLOW)
[2017-05-10 19:05] VITALS: BP 128/84; PULSE 72; TEMP 98.6; O2SAT 99
--- NOTE | 2017-05-10 23:04 | CARD ---
APPROVED REPORT EKG Measurement Heart [id number] <Conclusion> Normal sinus rhythm Normal ECG
== END 2017-05-10 19:02 | disposition home or self-care (01) ==
LOC: ED 14:38
DX: R50.9 Fever, unspecified (principal); I10 Essential (primary) hypertension; Z88.0 Allergy status to penicillin

== ENCOUNTER 2017-06-01 11:17 | Day surgery (SDC) | payer MEDICARE ==
[2017-05-30 11:31] VITALS: BMI 19.2
[2017-06-01 12:13] LABS: BASO # 0.07 K/mm3 (0.0-2.0); BASO % 1.2 % (0.0-3.0); EOS # 0.2 (0.0-0.7); EOS % 3.2 % (1.5-5.0); GRAN # 4.04 (1.4-6.5); GRAN % 71.7 % (50.0-68.0); HEMATOCRIT 34.5 % (36.0-48.0); LYMPH # 0.7 (1.2-3.4); LYMPH % 12.6 % (22.0-35.0); MEAN CELL VOLUME 89.1 fl (80.0-105.0); MEAN CORPUSCULAR HEMOGLOBIN 28.2 pg (25.0-35.0); MEAN CORPUSCULAR HGB CONC 31.6 g/dl (31.0-37.0); MEAN PLATELET VOLUME 10.1 fl (7.0-11.0); MONO # 0.6 (0.1-0.6); MONO % 11.3 % (1.0-6.0); RED CELL DISTRIBUTION WIDTH 16.1 % (11.5-14.5); WHITE BLOOD COUNT 5.6 10^3/ul (4.5-11.0)
[2017-06-01 12:20] LABS: BLOOD UREA NITROGEN 14 mg/dL (7-21); CALCIUM 9.7 mg/dL (8.4-10.5); CARBON DIOXIDE 25 mmol/L (21-33); CHLORIDE 104 mmol/L (98-107); GFR AFRICAN-AMERICAN > 60; GLUCOSE,RANDOM 107 mg/dL (70-110); SODIUM 141 mmol/L (132-148)
[2017-06-01 12:34] LABS: INR 1.12 (0.93-1.08); PARTIAL THROMBOPLASTIN TIME 24.2 Seconds (25.1-36.5)
[2017-06-01] MEDS ORDERED: Lidocaine 2% Inj (20ml) ONE (13:27)
[2017-06-01] MEDS ORDERED: Sodium Chloride 0.45% 1,000 ML IV SCH (14:15)
[2017-06-01 16:43] VITALS: BP 161/57; PULSE 75; RESP 18; TEMP 98.6; O2SAT 96
--- NOTE | 2017-06-01 18:20 | VASCULAR ---
PROCEDURE: 1. Remove right tunneled pleural catheter HISTORY: Lymphoma. Recurrent right pleural effusion necessitating tunneled pleural catheter. Catheter output is negligible stable chest x-rays. Remove tunneled catheter PHYSICIAN(S): Antolin Noble MD. TECHNIQUE: he relative risks and indications of the procedure were explained to the patient and her daughter and informed written consent obtained. The patient was placed in a left decubitus position and the right tunneled pleural catheter prepped and draped usual sterile fashion. Conscious sedation monitoring were provided throughout the procedure by a nurse. The Aspira catheter and tunnel were anesthetized 1 percent xylocaine. Blunt dissection was performed. Right tunneled catheter was removed without difficulty. A single interrupted suture was placed. The patient tolerated the procedure well. IMPRESSION: 1. Removal of the patient's tunneled right pleural catheter.
--- NOTE | 2017-06-02 09:23 | RAD ---
HISTORY: eval for rt PTX COMPARISON: No prior. FINDINGS: LUNGS: Pulmonary vascular congestion. Bibasilar atelectasis. PLEURA: Small bilateral pleural effusions, slightly increased in size. No pneumothorax apparent. CARDIOVASCULAR: Atherosclerotic aortic calcifications. Cardiomediastinal silhouette unchanged. OSSEOUS STRUCTURES: Unchanged. VISUALIZED UPPER ABDOMEN: Normal. OTHER FINDINGS: Interval removal of right basilar tunneled pleural catheter. IMPRESSION: Interval mobile right basilar tunneled pleural catheter. No appreciable pneumothorax. Slight interval increase in size of small bilateral pleural effusions.
== END 2017-06-01 17:10 | disposition home or self-care (01) ==
LOC: SDS 11:17
PROVIDERS: ATTEND Radiology Vascular & Interventional Radiology
DX: J90 Pleural effusion, not elsewhere classified (principal); C85.90 Non-Hodgkin lymphoma, unspecified, unspecified site; I10 Essential (primary) hypertension
CPT/HCPCS: 36415; 36589; 71010; 80048; 85025; 85610; 85730; 99152; J2405; J3010; J7030 ×2

== ENCOUNTER 2017-08-20 15:03 | Emergency (ER) | payer MEDICARE ==
[2017-08-20 15:03] VITALS: BMI 19.2
[2017-08-20 15:22] VITALS: RESP 18; TEMP 98.9
--- NOTE | 2017-08-20 16:22 | ED PDOC ---
Arrival/HPI - General Chief Complaint: Fever Time Seen by Provider: 08/20/17 15:26 Historian: Patient, Family - History of Present Illness Narrative History of Present Illness (Text): 08/20/17 16:18 Patient is an 82 yo female with past medical history of lymphoma, who presents to the Emergency Department with history of "fevers on and off this week". She reports temperature of 99 today and feels that "on and off" at night she has been having fevers. She denies cough or shortness of breath. Denies abdominal pain, denies nausea or vomiting or diarrhea. Denies rash. Reports some right sided back pain but states that this comes and goes and has been present in the past. No associated urinary symptoms. Time/Duration: Prior to Arrival Symptom Onset: Gradual Past Medical History - Infectious Disease Hx of Infectious Diseases: None - Cardiac Hx Pacemaker: No - Pulmonary Hx Respiratory Disorders: Yes Hx Pneumonia: Yes Other/Comment: plueral effusion - Neurological Hx Neurological Disorder: No - HEENT Hx HEENT Disorder: Yes Other/Comment: glasses - Renal Hx Renal Disorder: No - Endocrine/Metabolic Hx Endocrine Disorders: No - Hematological/Oncological Other/Comment: non hodgkins lymphoma - Integumentary Hx Dermatological Disorder: No - Musculoskeletal/Rheumatological Hx Musculoskeletal Disorders: Yes - Gastrointestinal Hx Gastrointestinal Disorders: No - Genitourinary/Gynecological Hx Genitourinary Disorders: No - Psychiatric Hx Psychophysiologic Disorder: No Hx Substance Use: No - Surgical History Hx Appendectomy: Yes Other/Comment: neck surgery in the past - Anesthesia Hx Anesthesia Reactions: No Hx Malignant Hyperthermia: No - Suicidal Assessment Feels Threatened In Home Enviroment: No Family/Social History Family/Social History: Unknown Family HX Smoking Status: Never Smoked Hx Alcohol Use: No Hx Substance Use: No Hx Substance Use Treatment: No Allergies/Home Meds Allergies/Adverse Reactions: Allergies Penicillins Allergy (Severe, Verified 08/20/17 15:22) RASH Home Medications: Home Meds Medication Instructions Recorded Confirmed Aspirin [Aspirin Chewable] 81 mg PO DAILY 09/16/13 08/20/17 Calcium/Vitamin D [Oyster Shell 1 tab PO BID 09/20/16 08/20/17 Calcium/Vitamin D 500 mg-200 IU] Metoprolol Succinate [Metoprolol 50 mg PO DAILY 09/20/16 08/20/17 Succinate Xl] [place]-3 Fatty Acids/Fish Oil [Fish 1,000 mg PO DAILY 09/20/16 08/20/17 Oil 1,000 mg Capsule] Rosuvastatin Calcium [Crestor] 5 mg PO DAILY 09/20/16 08/20/17 Zolpidem [Ambien] 5 mg PO HS 09/20/16 08/20/17 Review of Systems - Review of Systems Constitutional: Fatigue, Fevers Eyes: absent: Vision Changes ENT: Sore Throat. absent: Rhinorrhea, Epistaxis, Sinus Congestion Respiratory: absent: SOB, Cough, Sputum, Wheezing Cardiovascular: absent: Chest Pain, Palpitations, Edema, STEPHEN Gastrointestinal: absent: Abdominal Pain, Stool Changes Genitourinary Female: absent: Dysuria Musculoskeletal: Back Pain. absent: Neck Pain, Myalgias Skin: absent: Rash Neurological: absent: Headache, Dizziness Hemo/Lymphatic: absent: Easy Bleeding Physical Exam Vital Signs Reviewed: Yes Vital Signs Temp Pulse Resp BP Pulse Ox 08/20/17 19:00 77 18 144/71 98 08/20/17 15:16 98.9 F 98 H 18 180/76 H 97 Temperature: Afebrile Blood Pressure: Hypertensive Respiratory Rate: Normal Appearance: Positive for: Well-Appearing, Non-Toxic, Comfortable Mental Status: Positive for: Alert and Oriented X 3 - Systems Exam Head: Present: Atraumatic Pupils: Present: PERRL Extroacular Muscles: Present: EOMI Mouth: Present: Moist Mucous Membranes Pharnyx: No: ERYTHEMA, EXUDATE, Strider Neck: Present: Normal Range of Motion. No: Meningeal Signs Respiratory/Chest: Present: Clear to Auscultation. No: Respiratory Distress Cardiovascular: Present: Regular Rate and Rhythm, Murmurs Abdomen: No: Tenderness, Distention Back: Present: Normal Inspection. No: CVA Tenderness Upper Extremity: No: Cyanosis, Edema Lower Extremity: No: Edema, CALF TENDERNESS Neurological: Present: Motor Func Grossly Intact, Normal Sensory Function Skin: Present: Warm Psychiatric: Present: Alert, Normal Insight, Normal Concentration, Anxious Medical Decision Making ED Course and Treatment: 08/20/17 18:26 Patient is present with daughter. I have reviewed provided medical records from [facility] where patient was recently seen and evaluated in June and July and reviewed recent labs and chest xray reading. Patient in the ED is afebrile. She is nontoxic appearing. There is no rash. No respiratory distress. There is no abdominal pain. UA is unremarkable. CBC is at her baseline levels. Chemistry unremarkable. On re-evaluation, she has no pharyngeal erythema or exudates or acute masses palpated, although I have stressed need for serial exams and re-evaluation with her physicians. Labs and xray findings reviewed with patient and daughter. I have discussed patient's presentation with DR. Audi Mcdonnell, who will follow-up with patient and blood cultures. - Lab Interpretations Microbiology Results: Microbiology Results 08/20/17 17:45 Urine Urine Culture - Final No Growth (<1,000 CFU/ML) 08/20/17 16:20 Blood Blood Culture - Preliminary NO GROWTH AFTER 24 HOURS 08/20/17 16:00 Blood Blood Culture - Preliminary NO GROWTH AFTER 24 HOURS Lab Results: 08/20/17 16:00 08/20/17 16:39 Lab Results 08/20/17 17:45: Urine Color Yellow, Urine Appearance Clear, Urine pH 7.5, Ur Specific [place] 1.015, Urine Protein Negative, Urine Glucose (UA) Negative, Urine Ketones Negative, Urine Blood Negative, Urine Nitrate Negative, Urine Bilirubin Negative, Urine Urobilinogen 0.2, Ur Leukocyte Esterase Negative 08/20/17 16:39: Sodium 141, Potassium 4.4, Chloride 106, Carbon Dioxide 28, Anion Gap 12, BUN 19, Creatinine 0.9, Est GFR ( Amer) > 60, Est GFR (Non- Af Amer) 60, Random Glucose 89, Calcium 9.8, Total Bilirubin 0.3, AST 29, ALT 24 , Alkaline Phosphatase 66, Lactate Dehydrogenase 453, Total Creatine Kinase 66, Troponin I < 0.01, Total Protein 7.3, Albumin 3.4, Globulin 3.9, Albumin/ Globulin Ratio 0.9 L 08/20/17 16:00: WBC 4.2 L D, RBC 3.78, Hgb 10.5 L, Hct 33.9 L, MCV 89.7, MCH 27.8, MCHC 31.0, RDW 16.2 H, Plt Count 137, MPV 9.8, Gran % 68.2 H, Lymph % ( Auto) 17.8 L, Christian % (Auto) 10.7 H, Eos % (Auto) 2.1, Baso % (Auto) 1.2, Gran # 2.87, Lymph # (Auto) 0.8 L, Christian # (Auto) 0.5, Eos # (Auto) 0.1, Baso # (Auto) 0.05 - RAD Interpretation Radiology Orders: 08/20/17 15:51 CHEST TWO VIEWS (PA/LAT) [RAD] Stat Disposition/Present on Arrival - Present on Arrival Any Indicators Present on Arrival: No History of DVT/PE: No History of Uncontrolled Diabetes: No Urinary Catheter: No History of Decub. Ulcer: No History Surgical Site Infection Following: None - Disposition Have Diagnosis and Disposition been Completed?: Yes Diagnosis: Fever Disposition: HOME/ ROUTINE Disposition Time: 18:29 Patient Plan: Discharge Condition: GOOD Additional Instructions: I have reviewed your symptoms with Dr. Mcdonnell. Please follow-up with Dr. Mcdonnell as discussed. Blood cultures were obtained today, please follow-up with Dr. Mcdonnell. For any cough, fevers, rash, swelling, masses, chest pain, abdominal pain, nausea or vomiting, numbness or weakness, unsteadiness, new or persistent symptoms, get rechecked. Referrals: Kenneth Medina MD [Primary Care Provider] - Follow up with primary Sherman Mcdonnell MD [Medical Doctor] - Follow up with primary Forms: [employer] (Korean)
[2017-08-20 16:27] LABS: BASO # 0.05 K/mm3 (0.0-2.0); BASO % 1.2 % (0.0-3.0); EOS # 0.1 (0.0-0.7); EOS % 2.1 % (1.5-5.0); GRAN # 2.87 (1.4-6.5); GRAN % 68.2 % (50.0-68.0); HEMOGLOBIN 10.5 g/dL (12.0-16.0); LYMPH # 0.8 (1.2-3.4); LYMPH % 17.8 % (22.0-35.0); MEAN CELL VOLUME 89.7 fl (80.0-105.0); MEAN CORPUSCULAR HEMOGLOBIN 27.8 pg (25.0-35.0); MEAN PLATELET VOLUME 9.8 fl (7.0-11.0); MONO # 0.5 (0.1-0.6); MONO % 10.7 % (1.0-6.0); RBC 3.78 10^6/uL (3.5-6.1); RED CELL DISTRIBUTION WIDTH 16.2 % (11.5-14.5); WHITE BLOOD COUNT 4.2 10^3/ul (4.5-11.0)
[2017-08-20 17:03] LABS: ALB/GLOB RATIO 0.9 (1.1-1.8); ALBUMIN 3.4 g/dL (3.0-4.8); ALT/SGPT 24 U/L (7-56); AST/SGOT 29 U/L (14-36); BLOOD UREA NITROGEN 19 mg/dL (7-21); CALCIUM 9.8 mg/dL (8.4-10.5); GFR AFRICAN-AMERICAN > 60; GFR NON-AFRICAN AMERICAN 60
[2017-08-20 17:14] LABS: TROPONIN I < 0.01 ng/mL
--- NOTE | 2017-08-20 17:52 | RAD ---
HISTORY: history of pleural effusion, reassess COMPARISON: 06/01/2017 TECHNIQUE: Chest PA and lateral FINDINGS: LUNGS: Pulmonary vascular congestion, mild Decrease in left lower lobe infiltrate compared to prior studies. PLEURA: Persistent bilateral pleural effusions. Stable right pleural effusion, diminution left pleural effusion. CARDIOVASCULAR: Normal. OSSEOUS STRUCTURES: No significant abnormalities. VISUALIZED UPPER ABDOMEN: Normal. OTHER FINDINGS: None. IMPRESSION: Decrease in left lower lobe infiltrate and left pleural effusion.
[2017-08-20 18:03] LABS: PH,URINE 7.5 (4.7-8.0); URINE BILIRUBIN NEGATIVE (NEGATIVE); URINE BLOOD NEGATIVE (NEGATIVE); URINE GLUCOSE (UA) NEGATIVE (NEGATIVE); URINE LEUKOCYTE ESTERASE NEGATIVE Leu/uL (NEGATIVE); URINE PROTEIN NEGATIVE mg/dL (<30 mg/dL); URINE UROBILINOGEN 0.2 E.U./dL (<1 E.U./dL)
[2017-08-20 18:06] LABS: URINE APPEARANCE CLEAR (CLEAR); URINE COLOR YELLOW (YELLOW)
[2017-08-20 19:29] VITALS: BP 144/71; PULSE 77; O2SAT 98
== END 2017-08-20 19:00 | disposition home or self-care (01) ==
LOC: ED 15:03
DX: R50.9 Fever, unspecified (principal); Z85.72 Personal history of non-Hodgkin lymphomas